=== PATIENT | female | born 1975 | race American Indian/Alaskan Native ===

== ENCOUNTER 2019-05-22 21:30 | Emergency (ER) | payer OTHER ==
--- NOTE | 2019-05-22 21:47 | Emergency Department Report ---
Blank Doc - Documentation Documentation: 43-year-old female that presents with low H/H and was sent by PCP. Had menstr ual cycle ended last week. This initial assessment/diagnostic orders/clinical plan/treatment(s) is/are subject to change based on patient's health status, clinical progression and re- assessment by fellow clinical providers in the ED. Further treatment and workup at subsequent clinical providers discretion. Patient/guardians urged not to elope from the ED as their condition may be serious if not clinically assessed and managed. Initial orders include: 1- Patient sent to [facility] for further evaluation and treatment 2- labs
[2019-05-22 22:04] LABS: Hematocrit 24.9 % (30.3-42.9); Hemoglobin 7.9 gm/dl (10.1-14.3); Mean Corpuscular HGB Conc 32 % (30-34); Platelet Count 535 K/mm3 (140-440); Red Blood Count 4.51 M/mm3 (3.65-5.03)
[2019-05-22 22:18] LABS: Mean Corpuscular Volume 55 fl (79-97); Red Cell Distribution Width 23.4 % (13.2-15.2)
[2019-05-22 22:22] LABS: BUN/Creatinine Ratio 13; Blood Urea Nitrogen 8 mg/dL (7-17); Calcium 8.7 mg/dL (8.4-10.2); Hemolysis Index 2
[2019-05-22 22:59] LABS: Total Cells Counted 100
[2019-05-22 23:00] LABS: Anisocytosis 3+; Hypochromasia 3+; Poikilocytosis 3+
[2019-05-22 23:01] LABS: Schistocytes 3+
[2019-05-22 23:02] LABS: Platelet Estimate Appears Increased
[2019-05-23 00:56] VITALS: BP 134/87
--- NOTE | 2019-05-23 01:21 | Emergency Department Report ---
ED General Adult HPI - General Chief complaint: Recheck/Abnormal Lab/Rx Stated complaint: HEMOGLOBIN Time Seen by Provider: 05/22/19 21:46 Source: patient Mode of arrival: Ambulatory Limitations: No Limitations - History of Present Illness Initial comments: Patient is 43 years old female with no significant past medical history. Patient presented to the ER from her primary care physician office after she presented for routine physical. Patient was found to have a hemoglobin of 7.8 and she was sent to the ER for further evaluation. Patient stated that she is having a irregular menstrual cycle with heavy bleeding [employer]. Patient is currently denying any chest pain, shortness of breath or weakness. Recent also denied hematuria, hematochezia, melena, hematemesis or hemoptysis. Severity scale (0 -10): 0 - Related Data Allergies Allergy/AdvReac Type Severity Reaction Status Date / Time No Known Allergies Allergy Verified 05/22/19 21:36 ED Review of Systems ROS: Stated complaint: HEMOGLOBIN Other details as noted in HPI Comment: All other systems reviewed and negative Constitutional: denies: chills, fever Respiratory: denies: cough, shortness of breath, SOB with exertion Cardiovascular: denies: chest pain, palpitations Gastrointestinal: denies: abdominal pain, nausea, vomiting Musculoskeletal: denies: back pain ED Past Medical Hx - Past Medical History Previous Medical History?: No - Surgical History Past Surgical History?: No - Social History Smoking Status: Never Smoker Substance Use Type: None ED Physical Exam - General Limitations: No Limitations General appearance: alert, in no apparent distress - Head Head exam: Present: atraumatic, normocephalic, normal inspection - Eye Eye exam: Present: normal appearance, PERRL - ENT ENT exam: Present: normal exam, normal orophraynx, mucous membranes moist - Neck Neck exam: Present: normal inspection, full ROM. Absent: tenderness, meningismus, lymphadenopathy, thyromegaly - Respiratory Respiratory exam: Present: normal lung sounds bilaterally - Cardiovascular Cardiovascular Exam: Present: regular rate, normal rhythm, normal heart sounds - GI/Abdominal GI/Abdominal exam: Present: soft, normal bowel sounds. Absent: distended, tenderness, guarding, rebound, rigid, organomegaly, mass, bruit, pulsatile mass, hernia - Extremities Exam Extremities exam: Present: normal inspection, full ROM, normal capillary refill. Absent: pedal edema, calf tenderness - Back Exam Back exam: Present: normal inspection, full ROM. Absent: CVA tenderness (R), CVA tenderness (L) - Neurological Exam Neurological exam: Present: alert, oriented X3, CN II-XII intact, normal gait, reflexes normal - Psychiatric Psychiatric exam: Present: normal mood - Skin Skin exam: Present: warm, intact, normal color ED Course Vital Signs 05/22/19 05/23/19 21:45 00:55 Temperature 98.5 F Pulse Rate 71 81 Respiratory 18 20 Rate Blood Pressure 124/71 Blood Pressure 134/87 [Right] O2 Sat by Pulse 100 99 Oximetry ED Medical Decision Making - Lab Data Result diagrams: 05/22/19 21:50 05/22/19 21:50 - Medical Decision Making Patient is 43 years old female with no significant past medical history. Patient presented to the ER from her primary care physician office after she presented for routine physical. Patient was found to have a hemoglobin of 7.8 and she was sent to the ER for further evaluation. Patient stated that she is having a irregular menstrual cycle with heavy bleeding [employer]. Patient is currently denying any chest pain, shortness of breath or weakness. Recent also denied hematuria, hematochezia, melena, hematemesis or hemoptysis. Labs showed a hemoglobin of 17.9. Patient is asymptomatic. This is most likely iron deficiency anemia secondary to chronic blood loss. Patient does not require blood transfusion at this moment however patient advised to follow-up with international operations manager for further management of her abnormal menstrual cycle. Patient also advised to return to the ER if symptoms are not improved. Critical care attestation.: If time is entered above; I have spent that time in minutes in the direct care of this critically ill patient, excluding procedure time. ED Disposition Clinical Impression: Iron deficiency anemia, Menorrhagia with irregular cycle Disposition: - TO HOME OR SELFCARE Is pt being admited?: No Condition: Stable Instructions: Iron Deficiency Anemia (ED), Iron Rich Diet (ED) Referrals: [facility] [Provider Group] - 3-5 Days
== END 2019-05-23 01:59 | disposition home or self-care (01) ==
LOC: ED 21:30
DX: D50.9 Iron deficiency anemia, unspecified (principal); N92.0 Excessive and frequent menstruation with regular cycle
CPT/HCPCS: 36415; 80048; 84703; 85007; 85025